=== PATIENT | male | born 1975 | race Caucasian/White ===

== ENCOUNTER → 2018-02-05 | Outpatient (CLI) | payer BC | LOC: CARDREHAB 15:31 | DX: R53.83 Other fatigue (principal); R09.02 Hypoxemia; E29.1 Testicular hypofunction; G47.00 Insomnia, unspecified; G47.30 Sleep apnea, unspecified; G47.10 Hypersomnia, unspecified | CPT/HCPCS: G0399 ==

== ENCOUNTER → 2019-04-07 | Outpatient (CLI) | payer BC | LOC: RAD 15:32 | DX: M25.531 Pain in right wrist (principal) ==

== ENCOUNTER → 2019-05-13 | Outpatient (CLI) | payer BC | LOC: RAD 09:13 | DX: M25.531 Pain in right wrist (principal) ==

== ENCOUNTER → 2023-06-03 | Outpatient (CLI) | payer BC | LOC: LAB 14:49 | DX: Z20.822 Contact with and (suspected) exposure to COVID-19 (principal) ==